=== PATIENT | female | born 1950 | race Caucasian/White ===

== ENCOUNTER → 2020-01-10 | Outpatient (CLI) | payer MEDICARE, OTHER ==
[~2020-01-10] VITALS: Ht 160 cm; Wt 50.2 kg
[~2020-01-10] MED LIST: ASPIRIN E.C. 8181 MG PO; CALCIUM 600 PLU1 TAB PO; CALCIUM CARBON650 M2; FOSAMAX 70MG TA70 MG PO; MASON NATURAL1200 MG PO
[2020-01-10 11:51] VITALS: BP 140/82; PULSE 65
[2020-01-10 12:01] LABS: INR 1.2 (0.8-3.0); PROTHROMBIN TIME 13.3 SECONDS (9.7-12.8)
--- NOTE | 2020-01-10 12:45 | NUR ---
PT TO CT SCANNER, LIVER SCANS DONE, BIOPSY WAS CANCELLED AT THIS TIME BY [facility]. IV DC'D INTACT. PT UP AND DRESSED DISCHARGED AMBULATORY
== END ==
LOC: COL.RAD 11:05
PROVIDERS: Internal Medicine Gastroenterology
DX: Z01.812 Encounter for preprocedural laboratory examination (principal); D18.03 Hemangioma of intra-abdominal structures; K80.20 Calculus of gallbladder without cholecystitis without obstruction
CPT/HCPCS: Q9967